=== PATIENT | female | born 1955 | race Caucasian/White ===

== ENCOUNTER → 2018-04-09 | Outpatient (CLI) | payer BC ==
--- NOTE | 2018-04-09 17:55 | KCIC ---
MRI of the lumbar spine without contrast 04/09/2018 CLINICAL HISTORY: Low back pain. TECHNIQUE: Unenhanced T1-weighted, T2-weighted and inversion recovery sagittal and T1-weighted and T2-weighted axial images of the lumbar spine were obtained. FINDINGS: Minimal S-shaped curvature of the thoracolumbar spine is seen. Degenerative signal changes are seen involving all of the disks of the lumbar spine. Degenerative signal changes are seen within the marrow surrounding these discs. The conus medullaris is normal morphology, position, and signal characteristics. A A 1 cm probable hemangioma is seen involving the L4 vertebral body. At the L1-2, L2-3 and L3-4 disc spaces there are minimal to mild generalized disc bulges. Degenerative changes are seen involving the facet joints bilaterally. There is mild ligamentum flavum hypertrophy bilaterally. These findings do not result in significant central spinal canal or neural foraminal stenosis. At the L4-5 disc space there is a mild generalized disc bulge. Degenerative changes are seen involving the facet joints bilaterally. There is mild ligamentum flavum hypertrophy bilaterally. These findings when combined result in mild central spinal canal stenosis. No neural foraminal stenosis is seen. At the L5-S1 disc space there is a mild generalized disc bulge. Superimposed on this disc bulge is a focal central disc protrusion. This measures 2 mm in AP diameter. Degenerative changes are seen involving the facet joints bilaterally. These findings when combined result in mild central spinal canal stenosis at L5-S1. No neural foraminal stenosis is seen. IMPRESSION:The changes of degenerative disc disease are seen involving lumbar spine. These findings result in mild central spinal canal stenosis at L4-5 and L5-S1. No neural foraminal stenosis is seen. Electronically signed by: Frank Beckford MD (04/09/2018 5:52 PM) [facility]
== END | disposition home or self-care (01) ==
LOC: KCIC MRI 13:56
DX: M51.36 Other intervertebral disc degeneration, lumbar region (principal); M48.061 Spinal stenosis, lumbar region without neurogenic claudication; M48.07 Spinal stenosis, lumbosacral region; M51.27 Other intervertebral disc displacement, lumbosacral region
CPT/HCPCS: 72148

== ENCOUNTER → 2018-06-18 | Outpatient (CLI) | payer BC ==
[~2018-06-18] MED LIST: BUPR300T4 PO; CLON1TAB11 PO; ESCITALOPRAM OX10 MG PO; IOHEXOL 180 MG/ML 10 ML VIAL. ONE; LEVO5TAB2 PO; MEDR10TA3 PO; MONT10TA9 PO; NAPR-683 PO; OXYC1TAB15 PO; TRAZ-86 PO; methylPREDNISolone ACETATE 40 MG/ML VIAL. ONE; methylPREDNISolone ACETATE 80 MG/ML VIAL. ONE
--- NOTE | 2018-06-19 01:52 | PAIN ---
DATE OF SERVICE: 06/18/2018 INITIAL CONSULTATION FOR PAIN CLINIC CHIEF COMPLAINT: Low back and right lower extremity pain. HISTORY OF PRESENT ILLNESS: This is a 63-year-old female who presents with history of pain for many years, worse over the past 6 months or so, increasing in the low back and right lower extremity, worse with walking, standing and changing positions. The patient reports it is not a result of any specific injury or action that she is aware of, but significant pain in the low back and right lower extremity, posterior gluteus, posterior thigh and posterior calf, with numbness and tingling and also some instability with walking; worse with standing, walking and changing positions, especially standing from a seated position. The patient reports it awakens her from sleep almost every night, but not consistently, once or twice a week each night. It does not affect her bowel or bladder control, but does affect her ability to walk. She feels very unstable. She is not using any assistive devices, however, to ambulate. The patient has had physical therapy various times over the years, most recently about 1 year ago, which helps to a moderate extent, but is not long lasting. The patient had an epidural injection about 1 month ago at an outside facility, which was a transforaminal injection, which was not helpful and actually made the pain worse in her right leg. The patient reports that she has tried oxycodone, cyclobenzaprine as well as Naprosyn. None of these have helped decrease the pain significantly. The patient continues to do the stretching and strengthening exercises with her physical therapy routine as best she can and tries to walk daily, although it is becoming more difficult because of the pain and some colder weather we have had lately. The patient rates her disability rate from 0-10, 10 being the worst, a 10 with family and home responsibilities and occupation, 6 with self-care and 7 with life-support activities. The patient reports the pain is sharp, stabbing, shooting, radiating into the right lower extremity as described, changes during the day, is worse with activity and intermittent in intensity. The patient reports no loss of motor function, but significant fatigability even walking more than 5-10 minutes with the right leg. PAST MEDICAL HISTORY: Significant for uterine cancer, status post chemotherapy and radiation, has been cancer-free since 2016. The patient reports history of depression, arthritis and obesity. PAST SURGICAL HISTORY: Previous surgery includes hysterectomy and right elbow surgery. CURRENT MEDICATIONS: Include trazodone, montelukast, levocetirizine, Naprosyn, Percocet, bupropion, medroxyprogesterone, escitalopram and clonazepam. ALLERGIES: The patient has no known drug allergies. FAMILY HISTORY: Significant for cancers and arthritis. SOCIAL HISTORY: The patient does not drink alcohol, does not smoke and does not use any illegal, illicit or recreational drugs. She is , lives with her spouse, has 1 son living with her at home, lives locally in [place], [place]. 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 REVIEW OF SYSTEMS: The patient's review of systems is positive for those items mentioned in the history of present illness. All systems reviewed and otherwise negative. It is complete, full and well documented on the patient's chart. PHYSICAL EXAMINATION: VITAL SIGNS: The patient's blood pressure is 140/103, pulse 96, respirations 16 and temperature is 98.2 degrees Fahrenheit. Height 5 feet 2 inches, weight is 266 pounds. GENERAL: The patient is awake, alert, oriented, appropriate, very pleasant demeanor. The patient is accompanied by her son and her . HEENT EXAMINATION: Shows normocephalic, atraumatic. Extraocular movements are intact and symmetrical. Oral cavity, mucous membranes are moist and pink. Dentition is intact. NECK: Shows anterior throat supple, without palpable lymphadenopathy noted. Swallow reflex is symmetrical. CHEST: Shows normal with inspection. Breath sounds are clear to auscultation bilaterally. HEART: Shows S1, S2 clear. No murmurs auscultated. ABDOMEN: Obese, soft, nontender and nondistended. No palpable organomegaly is noted. No rebound or guarding demonstrated. BACK: Shows spine grossly in the midline. Normal-appearing cervical lordotic curvature, thoracic kyphotic curvature is slightly exaggerated and lumbar lordotic curvature is flattened to a moderate extent. The patient has good rotational motion, however, at the lumbar spine, both laterally, greater than 10 degrees right and left as well as extension greater than 10 degrees and forward flexion 45 degrees, without significant difficulty. Cervical spine shows good rotational motion past 45 degrees, right and left as well as lateral rotation as well as full extension and forward flexion without difficulty. The patient's lumbar paraspinous muscle shows symmetrical on inspection. On palpation, it shows some moderate tenderness diffusely in the middle and lower distributions, but somewhat more on the right than the left, but again without asymmetry. No trigger points. No atrophy or hypertrophy. The patient has no tenderness over the spinous processes, sacrum or sacroiliac regions. EXTREMITIES: The patient's lower extremities show deep tendon reflexes 1+ in the patellar and tendo calcaneus tendons. Motor exam is approximately 4 on a scale of 5 on the right and 5/5 on the left with dorsiflexion, extension, quadriceps and hamstring flexion. Peripheral pulses are 1+ posterior tibia. No peripheral edema is noted bilaterally. Straight leg raise noted to be negative bilaterally for reproduction of radicular symptoms. Gaenslen's and Rafiq's maneuvers are negative bilaterally as well. The patient's lower extremities are warm and dry to touch, equal in color and appearance. The patient is able to stand and stand on her toes without significant difficulty, although with standing all of her weight on her right leg, she does fatigue easily and feels unstable. She is walking with a slight antalgic gait, appears to favor the right lower extremity to a moderate extent, not using any assistive devices to ambulate. SKIN: The patient's skin shows warm and dry. Good turgor. No edema. No swelling, rashes or bruising. IMPRESSION: 1. This is a 63-year-old female with a long history of many years of low back and right lower extremity pain, worse over the past 6 months or so in a radicular fashion. 2. MRI scan of the lumbar spine as noted showing L5-S1 generalized disk bulge with a superimposed focal central disk protrusion, measuring 2 mm in AP diameter, combined results findings showing mild central spinal canal stenosis at L5-S1. 3. Obesity. 4. Arthritis. 5. History of uterine cancer. PLAN: Options were discussed with the patient, including conservative medical management, physical therapy and interventional techniques and she elected to proceed with interventional techniques. We discussed a lumbar epidural steroid injection using description as well as anatomical models to describe the procedure. Risks were then discussed including, but not limited to bleeding, infection, possibility of epidural hematoma and subsequent neurological compromise, dural puncture, headaches, spinal cord and/or nerve damage, side effects of steroid medication and poor results regarding pain control. The patient understands and wished to proceed. The patient to return to the clinic in approximately 2 weeks for followup. She was counseled on her return appointment, activity level and side effects to be aware of. DIAGNOSES: Lumbar radiculopathy with lumbar degenerative disk disease and lumbar spinal stenosis. PROCEDURE: Lumbar epidural steroid injection in a translaminar approach at the L5-S1 level using C-arm fluoroscopic guidance under sterile prep and drape using local anesthetic. MEDICATION INJECTED: A total of 120 mg Depo-Medrol plus 10 mL preservative-free normal saline and 2 mL of Isovue for contrast. CONDITION AT DISCHARGE: Stable. The patient tolerated the procedure well, had no complications. JUAN CARLOS ARCE MD DR: GABE/preethi JOB#: [id number] / [id number] EMILY Reed
== END | disposition home or self-care (01) ==
LOC: PNCL 10:11
PROVIDERS: ATTEND Anesthesiology
DX: M51.16 Intervertebral disc disorders with radiculopathy, lumbar region (principal); M48.061 Spinal stenosis, lumbar region without neurogenic claudication; E66.9 Obesity, unspecified; M19.90 Unspecified osteoarthritis, unspecified site; M79.661 Pain in right lower leg; F32.9 Major depressive disorder, single episode, unspecified; Z85.41 Personal history of malignant neoplasm of cervix uteri; Z92.21 Personal history of antineoplastic chemotherapy; Z79.899 Other long term (current) drug therapy; Z82.61 Family history of arthritis
CPT/HCPCS: 62323; J1030; J1040; Q9965

== ENCOUNTER → 2018-07-02 | Outpatient (CLI) | payer BC ==
--- NOTE | 2018-07-03 05:08 | PAIN ---
DATE OF SERVICE: 07/02/2018 DIAGNOSES: Lumbar radiculopathy with lumbar degenerative disk disease and lumbar spinal stenosis. HISTORY OF PRESENT ILLNESS: The patient is a 63-year-old female who returns for followup status post lumbar epidural steroid injection x 1. The patient reports about 50% improvement in the pain in her right leg are now completely gone. The patient has had pain in the low back itself, more to the right than the left, but in the low back without radiation significantly into the right leg at this time, but this has quite improved. The patient had been increasing her activity both at home and walking with greater ease and comfort, doing household activities with much better ability and traveling with easier ability and less pain as well. The patient reports her pain is still sharp and shooting in the low back, occasionally radiating to the right leg, but much better, constant aching in the back with walking and standing, better with sitting or lying down. Reports it is not awaking her from sleep at this time. The patient reports her pain is an average of 5-6 on a scale of 10, at worst is a 7, 5 at its least and is a 5 today. The patient reports no new motor or sensory deficits. No new bowel or bladder incontinence or other complaints. PHYSICAL EXAMINATION: VITAL SIGNS: The patient's blood pressure 131/87, pulse is 75, respirations are 16, temperature 98.5 degrees Fahrenheit, weight is 260 pounds. GENERAL: The patient is awake, alert, oriented, appropriate, very pleasant demeanor. HEENT: Shows normocephalic, atraumatic. Extraocular movements are intact and symmetrical. Oral cavity: Mucous membranes moist and pink. Dentition is intact. NECK: Anterior throat supple without palpable lymphadenopathy noted. Swallow reflex is symmetrical. CHEST: Shows normal on inspection. Breath sounds are clear to auscultation bilaterally. HEART: Shows S1, S2 clear. No murmurs auscultated. ABDOMEN: Soft, nontender, nondistended. No palpable organomegaly is noted. No rebound or guarding demonstrated. BACK: Shows spine grossly in the midline, slight exaggeration of thoracic kyphosis, some minor flattening of lumbar lordotic curvature. Lumbar paraspinous muscle shows symmetrical on inspection. With palpation shows some moderate tenderness diffusely bilaterally, but only diffusely without radiation. The patient shows good rotational motion of the lumbar spine, both laterally as well as extension and flexion without difficulty. EXTREMITIES: Lower extremities show deep tendon reflexes 1+ in the patellar and tendo calcaneus tendons are equal. Motor exam is approximately 4 on a scale of 5 on the right and 5/5 on the left with dorsiflexion, extension, quadriceps and hamstring flexion. Peripheral pulses are 1+ posterior tibia. No peripheral edema is noted bilaterally. Options were discussed with the patient. The patient's old chart was reviewed as was her current medication regimen updated. Current review of systems is updated today as well and we will proceed with a second lumbar epidural steroid injection today with fluoroscopic guidance. Risks were again discussed including, but not limited to bleeding, infection, possibility of epidural hematoma and subsequent neurological compromise, dural puncture, headaches, spinal cord and/or nerve damage, side effects of steroid medication and poor results regarding pain control. The patient understands and wished to proceed. The patient will return to the clinic in approximately 2 weeks for followup, was counseled on return appointment, activity level and side effects to be aware of. DIAGNOSES: Lumbar radiculopathy with lumbar degenerative disk disease, lumbar spinal stenosis. PROCEDURE: Lumbar epidural steroid injection, translaminar approach at L5-S1 level using C-arm fluoroscopic guidance under sterile prep and drape using local anesthetic. MEDICATION INJECTED: A total of 120 mg Depo-Medrol plus 10 mL of preservative-free normal saline and 2 mL of Isovue for contrast. CONDITION AT DISCHARGE: Stable. The patient tolerated the procedure well, had no complications. JUAN CARLOS ARCE MD DR: GABE/preethi JOB#: [id number] / [id number]
== END | disposition home or self-care (01) ==
LOC: PNCL 10:18
PROVIDERS: ATTEND Anesthesiology
DX: M51.16 Intervertebral disc disorders with radiculopathy, lumbar region (principal); M48.061 Spinal stenosis, lumbar region without neurogenic claudication
CPT/HCPCS: 62323; J1030; J1040; Q9965

== ENCOUNTER → 2018-07-16 | Outpatient (CLI) | payer BC ==
--- NOTE | 2018-07-17 00:52 | PAIN ---
DATE OF SERVICE: 07/16/2018 DIAGNOSES: Lumbar radiculopathy with lumbar degenerative disease and lumbar spinal stenosis. HISTORY OF PRESENT ILLNESS: The patient is a 63-year-old female who returns for followup status post lumbar epidural steroid injection x 2. The patient reports about 90% improvement after the last injection, which was 07/02/2018. The patient reports still some pain in the low back and into the right lower extremity, but much reduced. She has been increasing her activity with greater ease and comfort, walking greater distances with greater ease, traveling with greater ability and doing household activities with greater comfort as well. The patient reports no new motor or sensory deficits, no new bowel or bladder incontinence. Reports it does not awaken her from sleep. The patient reports her pain is 3-1/2 out of 10 on its worst, 2 on average, 0 at least and is 2 today. The patient reports it is on and off in intensity, aching, dull, sometimes sharp and stabbing, but mostly just dull and aching in the low back and the right leg, posterior gluteus and posterior thigh. The patient reports no new motor or sensory deficits, no new bowel or bladder incontinence or other complaints. PHYSICAL EXAMINATION: VITAL SIGNS: Today, his blood pressure is 141/88, pulse is 84, respirations are 18, temperature is 99.0 degrees Fahrenheit. Height is 5 feet 2 inches and weight is 268 pounds. GENERAL: The patient is awake, alert, oriented, appropriate, very pleasant demeanor. HEENT: Head is normocephalic, atraumatic. Extraocular muscles are intact and symmetrical. Oral cavity: Mucous membranes moist and pink. Dentition is intact. NECK: Shows anterior throat supple without palpable lymphadenopathy noted. Swallow reflex symmetrical. CHEST: Shows normal with inspection. Breath sounds clear to auscultation bilaterally. HEART: Shows S1, S2 clear. No murmurs auscultated. ABDOMEN: Soft, nontender, nondistended, obese. No palpable organomegaly is noted. No rebound or guarding demonstrated. BACK: Shows spine grossly in the midline. Normal-appearing thoracic kyphosis and lumbar lordotic curvature, slightly flattened. Lumbar paraspinous muscle shows symmetrical on inspection, on palpation shows some moderate tenderness but only diffusely in the low lumbar distribution without significant radiation. EXTREMITIES: The patient's lower extremities show deep tendon reflexes at 1+ in the patellar and tendo calcaneus tendons. Motor exam is approximately 4 on a scale of 5 with right dorsiflexion and extension, 5/5 on the left; quadriceps and hamstring flexion, however, is equal at 5/5 bilaterally. Peripheral pulses are 1+ posterior tibia. No peripheral edema is noted. Options were discussed with the patient. The patient's old chart was reviewed as was her current medication regimen updated. Current review of systems updated today as well and we will proceed with a third in the series of lumbar epidural steroid injection today with fluoroscopic guidance. Risks were again discussed including, but not limited to bleeding, infection, possibility of epidural hematoma and subsequent neurological compromise, dural puncture, headaches, spinal cord and/or nerve damage, side effects of steroid medication and poor results regarding pain control. The patient understands and wished to proceed. The patient to return to clinic in approximately 2 weeks for followup, was counseled as to return appointment, activity level and side effects to be aware of. DIAGNOSIS: Lumbar radiculopathy with lumbar degenerative disk disease, lumbar spinal stenosis. PROCEDURE: Lumbar epidural steroid injection, translaminar approach at the L5-S1 level using C-arm fluoroscopic guidance under sterile prep and drape using local anesthetic. MEDICATION INJECTED: A total of 120 mg Depo-Medrol plus 10 mL of preservative-free normal saline and 2 mL of Isovue for contrast. CONDITION AT DISCHARGE: Stable. The patient tolerated the procedure well and had no complications. JUAN CARLOS ARCE MD DR: GABE/preethi JOB#: [id number] / [id number]
== END | disposition home or self-care (01) ==
LOC: PNCL 09:49
PROVIDERS: ATTEND Anesthesiology
DX: M51.16 Intervertebral disc disorders with radiculopathy, lumbar region (principal); M48.061 Spinal stenosis, lumbar region without neurogenic claudication
CPT/HCPCS: 62323; J1030; J1040; Q9965

== ENCOUNTER → 2018-12-20 | Outpatient (CLI) | payer OTHER, BC ==
[~2018-12-20] MED LIST changes: -CLON1TAB11 PO; +CLONAZEPAM1 MG PO; -IOHEXOL 180 MG/ML 10 ML VIAL. ONE; +MONT10TA49 PO; -MONT10TA9 PO; -methylPREDNISolone ACETATE 40 MG/ML VIAL. ONE; -methylPREDNISolone ACETATE 80 MG/ML VIAL. ONE
--- NOTE | 2018-12-21 10:56 | KCIC ---
STUDY: MRI of the right knee without contrast INDICATION: Anterior knee pain. Swelling. Pain with ambulation. COMPARISON: No prior cross-sectional imaging available for comparison. TECHNIQUE: Multiplanar MR imaging of the right knee performed without the use of intravenous or intra-articular contrast. FINDINGS: The study is partially degraded by motion artifact. Menisci: No discrete tear of the medial or lateral menisci. Cruciate ligaments: The ACL and PCL are intact. Collateral ligaments: The medial and lateral collateral ligamentous structures are intact. Tendons: The extensor mechanism is intact. The additional tendons at the knee are unremarkable. Cartilage: Close evaluation of the cartilage is limited by motion. Patellofemoral: High-grade chondral loss involving the medial patella facet and extending across the median ridge to involve the medial aspect of the lateral facet with superimposed areas of fissuring/delamination. Mild associated subchondral marrow edema. Areas of high-grade chondrosis at the trochlear groove and medial trochlea such as seen at the trochlear groove on image 14 series 8 and at the medial trochlea on images 11 and 12 series 8. Lateral compartment: Heterogeneous signal at the mid to posterior lateral tibial plateau appears mostly related to artifact and a discrete full-thickness defect is not identified. Medial compartment: Chondral heterogeneity and thinning at the weightbearing medial compartment without visualized full-thickness defect. Bones: No acute fracture or aggressive marrow signal abnormality. Mild medial patellar tilt with joint space narrowing across medial aspect of the patellofemoral compartment. Miscellaneous: Moderate sized knee joint effusion. Small Chávez's cyst. Nonspecific subcutaneous edema about the knee, most pronounced anteriorly. Additionally, there is more confluent thin fluid signal tracking within the subcutaneous fat just deep to the skin such as from images 17 through 27 series 6. 1. IMPRESSION: The study is degraded by motion artifact though some diagnostic utility is maintained. 2. No acute internal derangement of the right knee. 3. 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 Some chondral thinning and heterogeneity at the weightbearing medial compartment without full-thickness defect noting motion artifact. The lateral compartment cartilage appears intact as well. 4. Moderate volume knee joint effusion and a small Chávez's cyst. 5. Some nonspecific subcutaneous edema mostly at the anterior knee. Additionally, more confluent thin tracking fluid deep to the skin surface at the anterior knee extending into the proximal lower leg. If there has been trauma, this could represent some mild degloving injury. Electronically signed by: ROSA M CANAS MD (12/21/2018 10:53 AM) [email or web address]
== END | disposition home or self-care (01) ==
LOC: KCIC MRI 16:23
DX: M71.21 Synovial cyst of popliteal space [Baker], right knee (principal); M25.461 Effusion, right knee; F40.240 Claustrophobia
CPT/HCPCS: 73721